=== PATIENT | male | born 1935 | race Caucasian/White ===

== ENCOUNTER 2020-03-05 10:35 | Emergency (ER) | payer MEDICARE, OTHER ==
[~2020-03-05] VITALS: Ht 172.7 cm; Wt 95.2 kg
[2020-03-05] MEDS ORDERED: NEURONTIN300 MG PO (10:47)
[2020-03-05] MEDS ORDERED: LIPITOR40 MG PO (10:47)
[2020-03-05] MEDS ORDERED: ONDANSETRON ODT8 MG PO (15:01)
--- NOTE | 2020-03-06 11:38 | EKG ---
[facility] [address] [facility] [place] [address] Signed Sinus rhythm with premature atrial complexes with aberrant conduction Right bundle branch block Abnormal ECG No previous ECGs available Confirmed by BARBARA LUCERO MD ([id number]) on 03/06/2020 11:38:18 AM Electronically Signed By: BARBARA LUCERO MD 03/06/20 1138 PATIENT NAME: VIET SAVAGE Electrocardiogram DATE OF : 33 PHYSICIAN: BARBARA LUCERO MD REPORT #: [id number] REPORT IS CONFIDENTIAL AND NOT TO BE RELEASED WITHOUT AUTHORIZATION
== END 2020-03-05 15:24 | disposition home or self-care (01) ==
LOC: ED 10:35
DX: K52.9 Noninfective gastroenteritis and colitis, unspecified (principal); R07.9 Chest pain, unspecified; F17.200 Nicotine dependence, unspecified, uncomplicated; Z88.2 Allergy status to sulfonamides; Z88.5 Allergy status to narcotic agent; Z88.8 Allergy status to other drugs, medicaments and biological substances; Z79.899 Other long term (current) drug therapy
CPT/HCPCS: 36415; 71045; 80053; 81001; 83690; 84484; 85025; 93005; 93010; 96361; 96374; 99285-25; C9803; J2405; J7030; U0002